=== PATIENT | female | born 1955 | race African-American/Black ===

== ENCOUNTER → 2021-04-16 07:52 | Outpatient (BNVA) | payer SELFPAY | PROVIDERS: Visit Provider Internal Medicine | DX: Z02.79 Encounter for issue of other medical certificate (principal) ==

== ENCOUNTER 2024-05-17 09:55 | Outpatient (AMB) | payer MEDICARE, OTHER, SELFPAY ==
--- NOTE | 2024-05-17 10:19 | A.OFFPC_ITS ---
Vital Signs 05/17/24 10:25 Height 5 ft 7 in Weight 173 lb 4 oz BMI 27.1 BP 132/78 Blood Pressure Location Rt brachial Position Sitting Pulse 74 Pulse Source Pulse Oximeter Temp 97.8 F Temp Source Temporal Artery Scan Pulse Oximetry (%) 100 Oxygen Delivery Method Room Air Intake Visit Reasons: Establish Care transfer from [facility] Intake Note: new patient visit c/o needing refills on meds. Bunch Trimmer Mold Required: No Allergies Penicillins Allergy (Severe, Verified 05/17/24 10:31) Shortness of Breath klonopin Allergy (Severe, Uncoded 05/17/24 10:31) Shortness of Breath levaquin Allergy (Severe, Uncoded 05/17/24 10:31) Fatigued shellfish Allergy (Severe, Uncoded 05/17/24 15:25) Anaphylaxis sulfa drug Allergy (Severe, Uncoded 05/17/24 10:31) Shortness of Breath Tobacco use date assessed: 05/17/24 Fall risk assessment: 1 Fall in past year Dental Screening Dental Screen Date: 05/17/24 Did you have a dental visit in the last 12 months?: Yes Did you have a dental problem in the last 6 months where you did not have access to dental care?: No Was dental information given to patient?: Patient has dentist HPI HPI Comments History of Present Illness Details This is a 68-year-old female with a past medical history of hypertension, hyperlipidemia and anxiety presenting to transfer care from [facility]. Hypertension taking furosemide and metoprolol. She had a benign echocardiogram 11/09/2023. No chest pain, shortness of breath. Recent creatinine 0.9, GFR 67. She has allergies to multiple medications including other antihypertensive meds. Anxiety-prescribed lorazepam 0.5 mg twice daily as needed. She does not need a refill. She would like to see an grating machine operator. She developed a shellfish allergy as an adult. Her last reaction was 6 years ago. She develops hives and difficulty breathing with scallops and shrimp and crabs. She eats fish. She does not have an EpiPen. She had a reaction to penicillin more than 10 years ago. It caused hives and facial swelling. She would like to be tested for this Allergy. 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 Anxiety Adenoma of colon Surgical History (Updated 05/17/24 @ 16:28 by DAMIR Son) History of colposcopy History of breast biopsy H/O LEEP H/O total hysterectomy with bilateral salpingo-oophorectomy (BSO) Family History (Updated 05/17/24 @ 16:30 by DAMIR Son) Mother Breast cancer Congestive heart failure Type 2 diabetes mellitus Hypertension Stroke Father Coronary artery disease Heart attack Brother Stroke Social History Housing: House Patient Tobacco Use Status: Never used Tobacco e-Cigarette/Vaping Use: Never Used Second Hand Smoke Exposure: No service: No Current occupational status: retired Current occupational exposures/hazards: No Cognitive needs: No Hearing needs: No Vision needs: Yes Questionnaire PHQ-9 Over the last 2 weeks, how often have you been bothered by any of the following problems? 1. Little interest or pleasure in doing things: not at all 2. Feeling down, depressed, or hopeless: not at all 3. Trouble falling or staying asleep, or sleeping too much: not at all 4. Feeling tired or having little energy: not at all 5. Poor appetite or overeating: not at all 6. Feeling bad about yourself - or that you are a failure or have let yourself or your family down: not at all 7. Trouble concentrating on things, such as reading the newspaper or watching te levision: not at all 8. Moving or speaking so slowly that other people could have noticed. Or the opposite - being so fidgety or restless that you have been moving around a lot more than usual: not at all 9. Thoughts that you would be better off or of hurting yourself in some way: not at all Total score: 0 38853 - PHQ-9 Billing: Yes Source: Developed by Drs. Luis Antonio Lay, Coni Pascual, James Peraza and colleagues, with an educational ladarius from [employer]. Thrive Questionnaire Date Thrive assessed: 05/17/24 I am a: Patient What is your living situation today?: I have a steady place to live Within the past 12 months, did the food you bought not last and you didn't have the money to get more?: Never true Within the past 12 months, did you worry whether your food would run out before you got money to buy more?: Never true Do you have trouble paying for medicines?: No Do you have trouble getting transportation to medical appointments?: No Do you have trouble paying your heating and electricity bill?: No Do you have trouble taking care of your child, family member or friend?: No Do you have trouble with day-to-day activities such as bathing, preparing meals, shopping, managing finances, etc.?: No Are you currently unemployed and looking for a job?: No Are you interested in more education?: No Please select the resources that you would like help with: None Currently or been in a relationship where the following occur: No concerns reported THRIVE Score: 0 AUDIT C Alcohol Use Questionnaire (AUDIT-C) 1. How often do you have a drink containing alcohol?: Never Total Score: 0 JENNIFER-7 AMB Questionnaire JENNIFER-7 Date JENNIFER - 7 assessed: 05/17/24 Feeling nervous, anxious, or on edge: 0 = Not at all Not being able to stop or control worryin = Not at all Worrying too much about different things: 0 = Not at all Trouble relaxin = Not at all Being so restless that it is hard to sit still: 0 = Not at all Becoming easily annoyed or irritable: 0 = Not at all Feeling afraid as if something awful might happen: 0 = Not at all Total JENNIFER-7 score (0-4 normal; 5-9 mild; 10-14 moderate; 15-21 severe): 0 Source: Developed by Drs. Luis Antonio Lay, Coni Pascual, James Peraza and colleagues, with an educational ladarius from [employer]. JENNIFER-7 Assessment Billing JENNIFER-7 Assessment Tool: JENNIFER-7 Assessment 17257 Review of Systems Const Details: Constitutional: No unexplained weight loss, fever, chills, fatigue or night sweats. Respiratory: No shortness of breath, cough or sputum production. Cardiovascular: No chest pain, chest pressure or chest discomfort. No palpitations or pedal edema. Neurologic: No headache, dizziness, syncope Physical exam (Primary Care) Vital Signs: Last Vital Signs Temp 97.8 F 05/17/24 10:25 Pulse 74 05/17/24 10:25 BP 132/78 05/17/24 10:25 Pulse Ox 100 05/17/24 10:25 Oxygen Delivery Method Room Air 05/17/24 10:25 BMI result Body Mass Index 27.1 Tobacco/Smoking Status: Tobacco use Status Tobacco use date assessed 05/17/24 05/17/24 10:33 Patient Tobacco Use Status Never used Tobacco 05/17/24 10:33 e-Cigarette/Vaping Use Never Used 05/17/24 10:33 PHQ-9: PHQ-9 Score PHQ-9: Total score 0 05/17/24 15:19 Thrive Assessment: Date of Thrive Assessment Date Thrive assessed 05/17/24 05/17/24 10:48 Currently or been in a relationship where the following occur: No concerns reported Const Other: Constitutional: Alert, in no distress. Respiratory: Clear to auscultation. Cardiovascular: S1 S2 regular. No murmurs. Extremities: Warm and well perfused. No clubbing, cyanosis or edema. 3 Psychiatric: Normal mood and affect Assessment and Plan Assessment & Plan (1) Anxiety: Code(s): F41.9 - Anxiety disorder, unspecified Plan: Stable. Continue lorazepam as needed. (2) Hypertension: Code(s): I10 - Essential (primary) hypertension Qualifiers: Hypertension type: primary hypertension Qualified Code(s): I10 - Essential (primary) hypertension Plan: Stable. Continue current regimen. Low-sodium diet and avoidance of caffeine recommended. (3) Shellfish allergy: Code(s): Z91.013 - Allergy to seafood Plan: Continue strict avoidance of shellfish. EpiPen as needed for anaphylaxis. Referred to Allergy and immunology. (4) Penicillin allergy: Code(s): Z88.0 - Allergy status to penicillin Plan: Continue strict avoidance of penicillin and its derivatives. Referred to Allergy and immunology. Plan Patient has a follow up scheduled with me this fall. Orders: Orders Lipid Panel Today E78.5 - Hyperlipidemia, unspecified, F41.9 - Anxiety disorder, unspecified, I10 - Essential (primary) hypertension, M81.0 - Age- related osteoporosis without current pathological fracture, Z91.013 - Allergy to seafood Comprehensive Met. Panel Today E78.5 - Hyperlipidemia, unspecified, F41.9 - Anxiety disorder, unspecified, I10 - Essential (primary) hypertension, M81.0 - Age-related osteoporosis without current pathological fracture, Z91.013 - Allergy to seafood Complete Blood Count no Diff Today E78.5 - Hyperlipidemia, unspecified, F41.9 - Anxiety disorder, unspecified, I10 - Essential (primary) hypertension, M81.0 - Age-related osteoporosis without current pathological fracture, Z91.013 - Allergy to seafood Vitamin D 1,25 dihydroxy Today E78.5 - Hyperlipidemia, unspecified, F41.9 - Anxiety disorder, unspecified, I10 - Essential (primary) hypertension, M81.0 - Age-related osteoporosis without current pathological fracture, Z91.013 - Allergy to seafood Referrals Allergy & Immunology Referral Z88.0 - Allergy status to penicillin, Z91.013 - Allergy to seafood Medications: New furosemide 20 mg PO DAILY 90 tabs 3RF epinephrine (EpiPen) 0.3 mg (0.3 mL) IM ONCE PRN 2 ea 0RF anaphylaxis Coding Level of Care Code Est Pt Level 4 (63319) Complex EM visit Add On G2211 Diagnoses Anxiety F41.9 Primary hypertension I10 Hypertension type: primary hypertension Shellfish allergy Z91.013 Penicillin allergy Z88.0 Additional Codes JENNIFER-7 Assessment Billing - JENNIFER-7 Assessment Tool: JENNIFER-7 Assessment 28967 ([id number])
[2024-05-17 10:25] VITALS: BP 132/78; PULSE 74; TEMP 36.6; O2SAT 100; BMI 27.1
== END 2024-05-17 11:04 | disposition home or self-care (01) ==
PROVIDERS: PCP Physician Assistant Medical; Visit Provider Physician Assistant Medical
DX: I10 Essential (primary) hypertension (principal); F41.9 Anxiety disorder, unspecified; Z91.013 Allergy to seafood; Z88.0 Allergy status to penicillin
CPT/HCPCS: 99214; G2211

== ENCOUNTER 2024-11-15 16:23 | Outpatient (AMB) | payer MEDICARE, OTHER, SELFPAY ==
--- NOTE | 2024-11-15 16:24 | MHC.PC.OV ---
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 Required: No Allergies Penicillins Allergy (Severe, Verified 11/15/24 16:25) Shortness of Breath klonopin Allergy (Severe, Uncoded 05/17/24 10:31) Shortness of Breath levaquin Allergy (Severe, Uncoded 05/17/24 10:31) Fatigued shellfish Allergy (Severe, Uncoded 05/17/24 15:25) Anaphylaxis sulfa drug Allergy (Severe, Uncoded 05/17/24 10:31) Shortness of Breath Tobacco use date assessed: 05/17/24 Fall risk assessment: No Falls in past year Last assessed Fall Risk: 11/15/24 Dental Screening Dental Screen Date: 05/17/24 HPI HPI Comments History of Present Illness Details This is a 68-year-old female with a past medical history of hypertension, hyperlipidemia and anxiety presenting for a physical exam. 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 She has 2 foster statins. Hypertension taking furosemide and metoprolol. She had an echocardiogram 11/09/2023. No chest pain, shortness of breath. She has allergies to multiple medications including other antihypertensive meds. Anxiety-prescribed lorazepam 0.5 mg twice daily as needed. Stable. She would like to see an hand engraver. She developed a shellfish allergy as an adult. Her last reaction was 6 years ago. She develops hives and difficulty breathing with scallops and shrimp and crabs. She eats fish. She has an EpiPen. She had a reaction to penicillin more than 10 years ago. It caused hives and facial swelling. She would like to be tested for this Allergy. Patient says she had PAP and mammogram within the past year. States bone density is up to date. She has an eye exam scheduled in February Dental exam up to date. She had colonoscopy at [place] 3 years ago, and they told her to return in 10 years. She declines influenza vaccine. Patient says she took this years ago and it made her sick for a month. She does not know her status of the other immunizations. She will sign a release for her medical records from [facility] today. ROS: Constitutional: No unexplained weight loss, fever, chills, fatigue or night sweats. Eyes: No vision changes, blurry vision, double vision, eye pain, eye redness, eye discharge. ENT: No hearing loss, sneezing, congestion, runny nose or sore throat. Respiratory: No shortness of breath, cough or sputum production. Cardiovascular: No chest pain, chest pressure or chest discomfort. No palpitations or pedal edema. Gastrointestinal: No anorexia, nausea, vomiting or diarrhea. No abdominal pain or blood in stool. Genitourinary: No dysuria, hematuria, urinary frequency. Neurologic: No headache, dizziness, syncope, unilateral weakness, ataxia, numbness or tingling in the extremities. Musculoskeletal: No muscle pain, back pain, joint pain or swelling. Hematologic/Lymphatics: No bleeding or bruising. No painful lymph nodes. Skin: No rash or itching. Endocrine: No cold or heat intolerance. No polyuria or polydipsia. Psychiatric: No depression or anxiety. No SI/HI. Physical exam: Constitutional: Alert, in no distress. Head: Normocephalic. Eyes: Pupils are equal, round and reactive to light. Extraocular muscles intact. Ear, Nose and Throat: Canals clear. TMs normal. Normal nasal mucosa. No nasal discharge. No oral lesions. Neck: Supple, Full range of motion. No lymphadenopathy. No palpable thyroid masses. Respiratory: Clear to auscultation. Cardiovascular: S1 S2 regular. No murmurs. No carotid bruits. Gastrointestinal: Abdomen soft, non-tender, non-distended. Normal bowel sounds. No palpable masses. Genitourinary: No costovertebral angle tenderness. Neurologic: No focal neurological deficits. Symmetric patellar reflexes. Moves all extremities spontaneously. Sensation intact bilaterally. Skin: No rashes or lesions. Musculoskeletal: No gross deformities. Normal range of motion. Extremities: Warm and well perfused. No clubbing, cyanosis or edema. 3+ peripheral pulses bilaterally. Psychiatric: Normal mood and affect [facility] Medical History (Updated 11/15/24 @ 17:04 by DAMIR Son) Routine physical examination Shellfish allergy Varicose veins of ankle Osteoporosis Mild tricuspid regurgitation Mild mitral insufficiency Abnormal mammogram of left breast Hypertension Hyperlipidemia History of vertigo Exophthalmos Diverticulosis Atypical squamous cell of undetermined significance of cervix Anxiety Adenoma of colon Surgical History (Updated 05/17/24 @ 16:28 by DAMIR Son) History of colposcopy History of breast biopsy H/O LEEP H/O total hysterectomy with bilateral salpingo-oophorectomy (BSO) Family History (Updated 05/17/24 @ 16:30 by DAMIR Son) Mother Breast cancer Congestive heart failure Type 2 diabetes mellitus Hypertension Stroke Father Coronary artery disease Heart attack Brother Stroke Social History Housing: House Patient Tobacco Use Status: Never used Tobacco e-Cigarette/Vaping Use: Never Used Second Hand Smoke Exposure: No service: No Current occupational status: retired Current occupational exposures/hazards: No Cognitive needs: No Hearing needs: No Vision needs: Yes Questionnaire PHQ-9 Over the last 2 weeks, how often have you been bothered by any of the following problems? 1. Little interest or pleasure in doing things: not at all 2. Feeling down, depressed, or hopeless: not at all 3. Trouble falling or staying asleep, or sleeping too much: not at all 4. Feeling tired or having little energy: not at all 5. Poor appetite or overeating: not at all 6. Feeling bad about yourself - or that you are a failure or have let yourself or your family down: not at all 7. Trouble concentrating on things, such as reading the newspaper or watching television: not at all 8. Moving or speaking so slowly that other people could have noticed. Or the opposite - being so fidgety or restless that you have been moving around a lot more than usual: not at all 9. Thoughts that you would be better off or of hurting yourself in some way: not at all Total score: 0 32475 - PHQ-9 Billing: Yes Source: Developed by Drs. Luis Antonio Lay, Coni Pascual, James Peraza and colleagues, with an educational ladarius from [employer]. Thrive Questionnaire Date Thrive assessed: 11/15/24 I am a: Patient What is your living situation today?: I have a steady place to live Within the past 12 months, did the food you bought not last and you didn't have the money to get more?: Never true Within the past 12 months, did you worry whether your food would run out before you got money to buy more?: Never true Do you have trouble paying for medicines?: No Do you have trouble getting transportation to medical appointments?: No Do you have trouble paying your heating and electricity bill?: No Do you have trouble taking care of your child, family member or friend?: No Do you have trouble with day-to-day activities such as bathing, preparing meals, shopping, managing finances, etc.?: No Are you currently unemployed and looking for a job?: I choose not to answer this question Are you interested in more education?: No Please select the resources that you would like help with: None Currently or been in a relationship where the following occur: No concerns reported THRIVE Score: 0 AUDIT C Alcohol Use Questionnaire (AUDIT-C) 1. How often do you have a drink containing alcohol?: Never Total Score: 0 JENNIFER-7 AMB Questionnaire JENNIFER-7 Date JENNIFER - 7 assessed: 11/15/24 Feeling nervous, anxious, or on edge: 0 = Not at all Not being able to stop or control worryin = Not at all Worrying too much about different things: 0 = Not at all Trouble relaxin = Not at all Being so restless that it is hard to sit still: 0 = Not at all Becoming easily annoyed or irritable: 0 = Not at all Feeling afraid as if something awful might happen: 0 = Not at all Total JENNIFER-7 score (0-4 normal; 5-9 mild; 10-14 moderate; 15-21 severe): 0 Source: Developed by Drs. Luis Antonio Lay, Coni Pascual, James Peraza and colleagues, with an educational ladarius from [employer]. JENNIFER-7 Assessment Billing JENNIFER-7 Assessment Tool: JENNIFER-7 Assessment 49824 Physical exam (Primary Care) Vital Signs: Last Vital Signs Pulse 78 11/15/24 16:27 Resp 14 11/15/24 16:27 BP 142/78 H 11/15/24 16:27 Pulse Ox 98 11/15/24 16:27 Oxygen Delivery Method Room Air 11/15/24 16:27 BMI result Body Mass Index 28.0 Tobacco/Smoking Status: Tobacco use Status Tobacco use date assessed 05/17/24 11/15/24 16:29 Patient Tobacco Use Status Never used Tobacco 11/15/24 16:29 e-Cigarette/Vaping Use Never Used 11/15/24 16:29 PHQ-9: PHQ-9 Score PHQ-9: Total score 0 11/15/24 16:29 Thrive Assessment: Date of Thrive Assessment Date Thrive assessed 11/15/24 11/15/24 16:29 Currently or been in a relationship where the following occur: No concerns reported Coding Level of Care Code Est Pt Prev Care >65y(89496) Diagnoses Routine physical examination Z00.00 Primary hypertension I10 Hypertension type: primary hypertension Hyperlipidemia E78.5 Additional Codes JENNIFER-7 Assessment Billing - JENNIFER-7 Assessment Tool: JENNIFER-7 Assessment 57851 ([id number]) PHQ-9 - 18450 - PHQ-9 Billing: Yes ([id number]) Assessment & Plan Assessment & Plan (1) Routine physical examination: Code(s): Z00.00 - Encounter for general adult medical examination without abnormal findings Category: Medical (2) Hypertension: Code(s): I10 - Essential (primary) hypertension Category: Medical Qualifiers: Hypertension type: primary hypertension Qualified Code(s): I10 - Essential (primary) hypertension (3) Hyperlipidemia: Code(s): E78.5 - Hyperlipidemia, unspecified Category: Medical Plan Patient is seen today for a routine physical. 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 Orders: Orders Complete Blood Count no Diff Today E78.5 - Hyperlipidemia, unspecified, I10 - Essential (primary) hypertension, M81.0 - Age-related osteoporosis without current pathological fracture, Z00.00 - Encounter for general adult medical examination without abnormal findings Urine Culture Today E78.5 - Hyperlipidemia, unspecified, I10 - Essential (primary) hypertension, M81.0 - Age-related osteoporosis without current pathological fracture, R39.9 - Unspecified symptoms and signs involving the genitourinary system, Z00.00 - Encounter for general adult medical examination without abnormal findings UA w Microscopic Today E78.5 - Hyperlipidemia, unspecified, I10 - Essential (primary) hypertension, M81.0 - Age-related osteoporosis without current pathological fracture, R39.9 - Unspecified symptoms and signs involving the genitourinary system, Z00.00 - Encounter for general adult medical examination without abnormal findings TSH reflex Free T4 Today E78.5 - Hyperlipidemia, unspecified, I10 - Essential (primary) hypertension, M81.0 - Age-related osteoporosis without current pathological fracture, Z00.00 - Encounter for general adult medical examination without abnormal findings Comprehensive Met. Panel Today E78.5 - Hyperlipidemia, unspecified, I10 - Essential (primary) hypertension, M81.0 - Age-related osteoporosis without current pathological fracture, Z00.00 - Encounter for general adult medical examination without abnormal findings Lipid Panel Today E78.5 - Hyperlipidemia, unspecified, I10 - Essential (primary) hypertension, M81.0 - Age-related osteoporosis without current pathological fracture, Z00.00 - Encounter for general adult medical examination without abnormal findings Vitamin D 1,25 dihydroxy Today E78.5 - Hyperlipidemia, unspecified, I10 - Essential (primary) hypertension, M81.0 - Age-related osteoporosis without current pathological fracture, Z00.00 - Encounter for general adult medical examination without abnormal findings
[2024-11-15 16:27] VITALS: BP 142/78; PULSE 78; RESP 14; O2SAT 98; BMI 28.0
[2024-11-15 16:49] VITALS: BP 132/76
== END 2024-11-15 17:02 | disposition home or self-care (01) ==
PROVIDERS: PCP Physician Assistant Medical; Visit Provider Physician Assistant Medical
DX: Z00.00 Encounter for general adult medical examination without abnormal findings (principal); I10 Essential (primary) hypertension; E78.5 Hyperlipidemia, unspecified

== ENCOUNTER → 2024-11-15 16:23 | Outpatient (BNVA) | payer MEDICARE, OTHER, SELFPAY | PROVIDERS: PCP Physician Assistant Medical; Visit Provider Physician Assistant Medical | DX: Z00.00 Encounter for general adult medical examination without abnormal findings (principal); I10 Essential (primary) hypertension; E78.5 Hyperlipidemia, unspecified; F41.9 Anxiety disorder, unspecified; Z79.899 Other long term (current) drug therapy | CPT/HCPCS: 96127; 99397 ==

== ENCOUNTER 2025-05-20 09:03 | Outpatient (AMB) | payer MEDICARE, OTHER, SELFPAY ==
--- OUTSIDE RECORDS SUMMARY | 2024-07-16 09:20 | XMS_ITS ---
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 :1955 A ge:69 Y S ex:Female Date:07/16/2024 Address:[address] [place], [place] [id number] Pcp:GENNARO KEARNS PA-C Subjective: * Chief Complaints: * 1 . 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 * Medical History: Objective: * Vitals: Assessment: Plan: * Treatment: * Images: Billing Information: * Visit Code: * Procedure Codes: * Electronic signature of Juvenal Kern MD on 05/20/2025 at 09:18 AM EDT Sign off status: Pending * Appointment Provider: Amy Kern M.D. Date: 0 07/16/2024 Generated for Printi stefano/Kishore/eTransmitting on: 0 05/20/2025 09:18 AM EDT
--- NOTE | 2025-05-20 09:06 | MHC.PC.OV ---
Vital Signs 05/20/25 09:14 Height 5 ft 7 in Weight 177 lb BMI 27.7 BP 118/78 Blood Pressure Location Rt brachial Position Sitting Pulse 83 Pulse Source Pulse Oximeter Temp 97 F Temp Source Temporal Artery Scan Pulse Oximetry (%) 95 Oxygen Delivery Method Room Air Intake Visit Reasons: med review Intake Note: Riri presents in the office today for a medication review. Would like a new referral for Allergy and Immunology. Allergies Penicillins Allergy (Severe, Verified 05/20/25 09:09) Shortness of Breath klonopin Allergy (Severe, Uncoded 05/20/25 09:09) Shortness of Breath levaquin Allergy (Severe, Uncoded 05/20/25 09:09) Fatigued shellfish Allergy (Severe, Uncoded 05/20/25 09:09) Anaphylaxis sulfa drug Allergy (Severe, Uncoded 05/20/25 09:09) Shortness of Breath Tobacco use date assessed: 05/20/25 Dental Screening Dental Screen Date: 05/20/25 Did you have a dental visit in the last 12 months?: Yes Did you have a dental problem in the last 6 months where you did not have access to dental care?: No Was dental information given to patient?: Patient has dentist HPI HPI Comments History of Present Illness Details This is a 69-year-old female with a past medical history of hypertension, hyperlipidemia and anxiety presenting for follow up. Hypertension taking furosemide and metoprolol. She had an echocardiogram 11/09/2023. No chest pain, shortness of breath. She has allergies to multiple medications including other antihypertensive meds. Her blood pressure is 118/78 today. She is not following a low-sodium diet. She does not drink alcohol or smoke. Anxiety-prescribed lorazepam 0.5 mg twice daily as needed. Stable. She uses this infrequently. I referred her to [facility], but she did not hear from them, and they did not call back when she tried to schedule the appointment. She developed a shellfish allergy as an adult. Her last reaction was 6 years ago. She develops hives and difficulty breathing with scallops and shrimp and crabs. She eats fish. She needs a refill on the EpiPen. She had a reaction to penicillin more than 10 years ago. It caused hives and facial swelling. She would like to be tested for this Allergy. She has some seasonal allergies and uses albuterol as needed for cough. She requests a refill on this. She uses it less than once per week. No ER visits or hospitalizations for respiratory symptoms. She is overweight, and she wants to lose weight. She started walking for exercise. She has a lot of questions today on dietary recommendations. She notes stiffness in her hands in the morning when she wakes up which improves quickly when she gets out of bed and starts using her hands. No swelling, redness or weakness. She also says that she is having difficulty sleeping sometimes. This is a chronic problem for her. Sometimes she can not fall asleep or she will wake up at 04:00 in the morning. She will take a nap during the day which helps. Denies snoring or non restorative sleep. She watches TV before bedtime. ROS: Constitutional: No unexplained weight loss, fever, chills, fatigue or night sweats. Eyes: No vision changes, blurry vision, double vision, eye pain, eye redness, eye discharge. ENT: No hearing loss, sneezing, congestion, runny nose or sore throat. Respiratory: No shortness of breath, cough or sputum production. Cardiovascular: No chest pain, chest pressure or chest discomfort. No palpitations or pedal edema. Gastrointestinal: No anorexia, nausea, vomiting or diarrhea. No abdominal pain or blood in stool. Genitourinary: No dysuria, hematuria, urinary frequency. Neurologic: No headache, dizziness, syncope, unilateral weakness, ataxia, numbness or tingling in the extremities. Musculoskeletal: No muscle pain, back pain, joint pain or swelling. Hematologic/Lymphatics: No bleeding or bruising. No painful lymph nodes. Skin: No rash or itching. Endocrine: No cold or heat intolerance. No polyuria or polydipsia. Psychiatric: No depression or anxiety. No SI/HI. Physical exam: Constitutional: Alert, in no distress. Head: Normocephalic. Eyes: Pupils are equal, round and reactive to light. Extraocular muscles intact. Ear, Nose and Throat: Canals clear. TMs normal. Normal nasal mucosa. No nasal discharge. No oral lesions. Neck: Supple, Full range of motion. No lymphadenopathy. No palpable thyroid masses. Respiratory: Clear to auscultation. Cardiovascular: S1 S2 regular. No murmurs. No carotid bruits. Gastrointestinal: Abdomen soft, non-tender, non-distended. Normal bowel sounds. No palpable masses. Genitourinary: No costovertebral angle tenderness. Neurologic: No focal neurological deficits. Symmetric patellar reflexes. Moves all extremities spontaneously. Sensation intact bilaterally. Skin: No rashes or lesions. Musculoskeletal: No gross deformities. Normal range of motion. Extremities: Warm and well perfused. No clubbing, cyanosis or edema. 3+ peripheral pulses bilaterally. 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 Anxiety Adenoma of colon Surgical History (Updated 05/17/24 @ 16:28 by DAMIR Son) History of colposcopy History of breast biopsy H/O LEEP H/O total hysterectomy with bilateral salpingo-oophorectomy (BSO) Family History (Updated 05/20/25 @ 09:13 by Fabi Tinajero MA) Mother Breast cancer Congestive heart failure Type 2 diabetes mellitus Hypertension Stroke Father Coronary artery disease Heart attack Brother Stroke Social History (Updated 05/20/25 @ 09:13 by aFbi Tinajero MA) Housing: House Alcohol intake: current Patient Tobacco Use Status: Never used Tobacco e-Cigarette/Vaping Use: Never Used Second Hand Smoke Exposure: No service: No Current occupational status: retired Current occupational exposures/hazards: No Cognitive needs: No Hearing needs: No Vision needs: Yes Questionnaire PHQ-9 Over the last 2 weeks, how often have you been bothered by any of the following problems? 1. Little interest or pleasure in doing things: not at all 2. Feeling down, depressed, or hopeless: not at all 3. Trouble falling or staying asleep, or sleeping too much: nearly every day 4. Feeling tired or having little energy: not at all 5. Poor appetite or overeating: not at all 6. Feeling bad about yourself - or that you are a failure or have let yourself or your family down: not at all 7. Trouble concentrating on things, such as reading the newspaper or watching television: not at all 8. Moving or speaking so slowly that other people could have noticed. Or the opposite - being so fidgety or restless that you have been moving around a lot more than usual: not at all 9. Thoughts that you would be better off or of hurting yourself in some way: not at all Total score: 3 Depression Screening Interpretation: Negative Depression Screening Done: Yes 93979 - PHQ-9 Billing: Yes Source: Developed by Drs. Luis Antonio Lay, Coni Pascual, James Peraza and colleagues, with an educational ladarius from [employer]. Thrive Questionnaire Date Thrive assessed: 05/20/25 I am a: Patient What is your living situation today?: I have a steady place to live Within the past 12 months, did the food you bought not last and you didn't have the money to get more?: Never true Within the past 12 months, did you worry whether your food would run out before you got money to buy more?: Never true Do you have trouble paying for medicines?: No Do you have trouble getting transportation to medical appointments?: No Do you have trouble paying your heating and electricity bill?: No Do you have trouble taking care of your child, family member or friend?: No Do you have trouble with day-to-day activities such as bathing, preparing meals, shopping, managing finances, etc.?: No Are you currently unemployed and looking for a job?: No Are you interested in more education?: I choose not to answer this question Please select the resources that you would like help with: None Currently or been in a relationship where the following occur: No concerns reported THRIVE Score: 0 AUDIT C Alcohol Use Questionnaire (AUDIT-C) 1. How often do you have a drink containing alcohol?: Never Total Score: 0 JENNIFER-7 AMB Questionnaire JENNIFER-7 Date JENNIFER - 7 assessed: 05/20/25 Feeling nervous, anxious, or on edge: 0 = Not at all Not being able to stop or control worryin = Not at all Worrying too much about different things: 0 = Not at all Trouble relaxin = Not at all Being so restless that it is hard to sit still: 0 = Not at all Becoming easily annoyed or irritable: 0 = Not at all Feeling afraid as if something awful might happen: 0 = Not at all Total JENNIFER-7 score (0-4 normal; 5-9 mild; 10-14 moderate; 15-21 severe): 0 Source: Developed by Drs. Luis Antonio Lay, Coni Pascual, James Peraza and colleagues, with an educational ladarius from [employer]. JENNIFER-7 Assessment Billing JENNIFER-7 Assessment Tool: JENNIFER-7 Assessment 28737 Physical exam (Primary Care) Vital Signs: Last Vital Signs Temp 97 F 05/20/25 09:14 Pulse 83 05/20/25 09:14 BP 118/78 05/20/25 09:14 Pulse Ox 95 05/20/25 09:14 Oxygen Delivery Method Room Air 05/20/25 09:14 BMI result Body Mass Index 27.7 Tobacco/Smoking Status: Tobacco use Status Tobacco use date assessed 05/20/25 05/20/25 09:17 Patient Tobacco Use Status Never used Tobacco 05/20/25 09:13 e-Cigarette/Vaping Use Never Used 05/20/25 09:13 PHQ-9: PHQ-9 Score PHQ-9: Total score 3 05/20/25 09:21 Depression Screening Interpretation: Negative Thrive Assessment: Date of Thrive Assessment Date Thrive assessed 05/20/25 05/20/25 09:08 Currently or been in a relationship where the following occur: No concerns reported Coding Level of Care Code Est Pt Level 5 (66713) Complex EM visit Add On G2211 Diagnoses Primary hypertension I10 Hypertension type: primary hypertension Hyperlipidemia E78.5 Morning joint stiffness of hand M25.649 Overweight E66.3 Shellfish allergy Z91.013 Penicillin allergy Z88.0 Anxiety F41.9 Insomnia G47.00 Additional Codes JENNIFER-7 Assessment Billing - JENNIFER-7 Assessment Tool: JENNIFER-7 Assessment [id number] ([id number]) PHQ-9 - 97538 - PHQ-9 Billing: Yes ([id number]) Time Spent (min) 48 Comment Direct patient care, completing documentation Assessment & Plan Assessment & Plan (1) Hypertension: Code(s): I10 - Essential (primary) hypertension Category: Medical Qualifiers: Hypertension type: primary hypertension Qualified Code(s): I10 - Essential (primary) hypertension Plan: Well-controlled. Recommended low-sodium diet and avoidance of caffeine. Continue current regimen. Reminded to have labs done which include orders for electrolytes and renal function. (2) Hyperlipidemia: Code(s): E78.5 - Hyperlipidemia, unspecified Category: Medical Plan: Mediterranean diet recommended. Continue exercise to promote healthy weight. Check lipid profile. (3) Morning joint stiffness of hand: Code(s): M25.649 - Stiffness of unspecified hand, not elsewhere classified Category: Medical Plan: Symptoms are mild, and they do not bother her enough to take medication. We discussed this may be due to arthritis. Hand exercises recommended. She can also try glucosamine chondroitin or turmeric which has some anti-inflammatory benefit. If symptoms worsen or if she appreciates pain, swelling or redness she will contact the office for further evaluation. (4) Overweight: Code(s): E66.3 - Overweight Category: Medical Plan: We discussed healthy portion sizes and recommendations for activity. We discussed the [place] diet to limit carbohydrates and sugars. Referred to the dietitian. (5) Shellfish allergy: Code(s): Z91.013 - Allergy to seafood Category: Medical Plan: Continue strict avoidance of shellfish. Renewed EpiPen. Referred to [facility]. (6) Penicillin allergy: Code(s): Z88.0 - Allergy status to penicillin Category: Medical Plan: Continue strict avoidance of penicillins. Referred to [facility]. (7) Anxiety: Code(s): F41.9 - Anxiety disorder, unspecified Category: Medical Plan: Stable. Continue lorazepam as needed. Do not drive or operate heavy machinery or drink alcohol with this medication. She uses this infrequently. (8) Insomnia: Code(s): G47.00 - Insomnia, unspecified Category: Medical Plan: Avoid caffeine after noon Try a sound machine Exercise regularly during the day Keep the bedroom dark for bedtime. Do not watch TV before bedtime. You can try Melatonin over the counter counter Plan Follow up in 6 months for a physical exam Orders: Referrals Allergy & Immunology Referral Z88.0 - Allergy status to penicillin, Z91.013 - Allergy to seafood [employer] Nutrition Referral E66.3 - Overweight, E78.5 - Hyperlipidemia, unspecified, I10 - Essential (primary) hypertension Medications: New albuterol sulfate 90 mcg/actuation 2 inhalations inhalation .every 4 hours PRN 8.5 grams 0RF shortness of breath or wheezing 30 days Refilled epinephrine (EpiPen) 0.3 mg (0.3 mL) IM ONCE PRN 2 ea 0RF anaphylaxis lorazepam 0.5 mg PO DAILY PRN 20 tabs 0RF anxiety Patient Instructions: Tumeric Glucosamine chondroitin Avoid caffeine after noon Try a sound machine Exercise regularly during the day Keep the bedroom dark for bedtime You can try Melatonin over the counter counter
[2025-05-20 09:14] VITALS: BP 118/78; PULSE 83; TEMP 36.1; O2SAT 95; BMI 27.7
== END 2025-05-20 09:53 | disposition home or self-care (01) ==
LOC: HO.HMCFM 09:04
PROVIDERS: PCP Physician Assistant Medical; Visit Provider Physician Assistant Medical
DX: I10 Essential (primary) hypertension (principal); E78.5 Hyperlipidemia, unspecified; E66.3 Overweight; Z68.27 Body mass index [BMI] 27.0-27.9, adult; M25.649 Stiffness of unspecified hand, not elsewhere classified; Z91.013 Allergy to seafood; Z88.0 Allergy status to penicillin; F41.9 Anxiety disorder, unspecified; G47.00 Insomnia, unspecified

== ENCOUNTER → 2025-05-20 09:03 | Outpatient (BNVA) | payer MEDICARE, OTHER, SELFPAY | PROVIDERS: PCP Physician Assistant Medical; Visit Provider Physician Assistant Medical | DX: I10 Essential (primary) hypertension (principal); E78.5 Hyperlipidemia, unspecified; M25.649 Stiffness of unspecified hand, not elsewhere classified; E66.3 Overweight; Z68.27 Body mass index [BMI] 27.0-27.9, adult; F41.9 Anxiety disorder, unspecified; G47.00 Insomnia, unspecified; Z91.013 Allergy to seafood; Z88.0 Allergy status to penicillin; Z13.31 Encounter for screening for depression; Z13.30 Encounter for screening examination for mental health and behavioral disorders, unspecified | CPT/HCPCS: 96127; 99212 ==